=== PATIENT | female | born 2000 | race African-American/Black ===

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

== ENCOUNTER 2023-12-13 05:52 | Emergency (ER) | payer BC ==
[~2023-12-13] VITALS: Ht 170.2 cm; Wt 115.0 kg
[~2023-12-13 05:52] MED LIST: APRI 0.15 MG-0.1 TAB PO; CEFTIN 250250 MG/TAB PO; CEPHALEXIN500 M1 PO; LEXAPRO20 MG PO; ZOFRAN ODT4 MG PO
[2023-12-13 06:05] VITALS: TEMP 98.6
[2023-12-13] MEDS ORDERED: NS 1,000 ML IV ONE (07:00)
[2023-12-13 07:06] LABS: COLLECTION METHOD CLEAN CATCH
[2023-12-13 07:13] LABS: BASO # 0.1 K/mm3 (0.0-0.2); BASO % 0.7 % (0.0-2.0); EOS # 0.2 K/mm3 (0.0-0.7); EOS % 1.2 % (0.0-4.0); GRAN # 9.6 K/mm3 (1.4-6.5); GRAN % 70.7 % (42.2-75.2); HEMATOCRIT 40.6 % (37.0-47.0); HEMOGLOBIN 13.6 g/dl (12.5-16.0); LYMPH # 2.6 K/mm3 (1.2-3.4); MEAN CELL VOLUME 89 fl (80.0-100.0); MEAN CORPUSCULAR HEMOGLOBIN 30 pg (27-31); MEAN CORPUSCULAR HGB CONC 34 g/dl (33.0-37.0); MEAN PLATELET VOLUME 10.3 fl (7.4-10.4); MONO # 1.1 K/mm3 (0.1-0.6); PLATELET COUNT 251 K/mm3 (130-400); RED BLOOD COUNT 4.57 M/mm3 (4.10-5.30); REDCELL DISTRIBUTION WIDTH-CV 12.7 % (11.5-14.5)
[2023-12-13] MEDS ORDERED: Ketorolac 30 MG/ML VIAL IV ONE (07:15)
[2023-12-13 07:16] LABS: PH 5.5 (5.0-8.5); URINE APPEARANCE CLOUDY (CLEAR/HAZY); URINE BLOOD 1+ (NEGATIVE); URINE COLOR YELLOW (YELLOW); URINE GLUCOSE NEGATIVE (NEGATIVE); URINE KETONE NEGATIVE (NEGATIVE); URINE NITRATE NEGATIVE (NEGATIVE); URINE PROTEIN(semi-quant) NEGATIVE (NEGATIVE); URINE UROBILINOGEN 0.2 E.U/dL (0.2-1.0)
[2023-12-13 07:33] LABS: BILIRUBIN,TOTAL 0.7 mg/dL (0.2-1.2); C-REACTIVE PROTEIN 0.2 mg/dL (0.00-0.50); CALCIUM 9.5 mg/dL (8.4-10.2); CREATININE, serum 0.84 mg/dL (0.57-1.11); POTASSIUM 3.7 mEq/L (3.5-4.5); TOTAL PROTEIN 7.2 g/dl (6.2-8.1)
[2023-12-13] MEDS ORDERED: cefTRIAXone 1 G in Water For Injection,Sterile 10 ML IV ONE (07:45)
[2023-12-13] MEDS ORDERED: Iohexol 300 - 100 ML VIAL IV ONE (08:16)
[2023-12-13] MEDS ORDERED: NS 100 ML IV SCH (08:18)
[2023-12-13] MEDS ORDERED: CEFTIN500 MG PO (10:27)
[2023-12-13] MEDS ORDERED: NAPROSYN500 MG PO (10:27)
[2023-12-13 10:37] VITALS: BP 127/87; PULSE 81
== END 2023-12-13 10:38 | disposition home or self-care (01) ==
LOC: COL.ER 05:52
PROVIDERS: Emergency Medicine
DX: N83.291 Other ovarian cyst, right side (principal); N39.0 Urinary tract infection, site not specified
CPT/HCPCS: J0696; J1885; J7030; Q9967